=== PATIENT | female | born 1995 | race Caucasian/White ===

== ENCOUNTER 2018-01-13 19:02 | Emergency (ER) | payer BC, SELFPAY ==
[2018-01-13] VITALS (11 sets, daily range): BP systolic 112–130; BP diastolic 63–86; PULSE 90–143; RESP 13–23; TEMP 37.7–39.5; O2SAT 94–98
--- NOTE | 2018-01-13 19:31 | DI.RAD_ITS ---
SYMPTOM/DIAGNOSIS: COUGH, FEVER PA AND LATERAL CHEST: 01/13 The heart is normal in size. The lungs are clear. The mediastinal structures and pleura appear intact. CONCLUSION: Normal chest.
[2018-01-13] MEDS: Acetaminophen 500 MG TAB 1000 MG PO (19:34)
[2018-01-13] MEDS: Ibuprofen 800 MG TAB (19:35)
[2018-01-13] MEDS: Normal Saline 1,000 ML 1000 ML IV ×2 (19:45→20:55)
[2018-01-13 19:51] LABS: Abs Immature Grans 0.02 k/cumm (0.0-0.09); Absolute Basophil Count 0.02 k/cumm (0.0-0.2); Absolute Lymphocyte Count 1.06 k/cumm (1.2-3.4); Absolute Monocyte Count 0.71 k/cumm (0.11-0.7); Basophils % 0.4; HGB 11.1 g/dL (12.0-15.5); Immature Grans % 0.4; Mean Corp. HGB Concentration 31.7 g/dL (32.0-36.0); Mean Corpuscular Hemoglobin 18.5 pg (27.0-33.0); Mean Corpuscular Volume 58.3 fL (80-95); Monocytes % 13.4; Neutrophils % 65.8; RBC Distribution Width 17.8 % (11.7-14.6); White Blood Cell Count 5.31 k/cumm (4.4-10.8)
[2018-01-13 19:57] LABS: Bilirubin Negative (Negative); Blood Negative (Negative); Clarity Clear; Glucose Negative (Negative); Ketones Negative (Negative); Leukocyte Esterase Negative (Negative); Nitrite Negative (Negative); pH 8.5 (5-8)
[2018-01-13 20:04] LABS: ALT 28 U/L (12-78); AST 23 U/L (15-37); Alkaline Phosphatase 111 U/L (46-116); Anion Gap 9.8 mmol/L (3-11); BUN 6 mg/dL (7-18); Bilirubin, Total 1.2 mg/dL (0.2-1.0); CO2 27.2 mmol/L (21.0-32.0); CREATININE 0.81 mg/dL (0.55-1.02); Calcium 9.2 mg/dL (8.5-10.1); Chloride 97 mmol/L (98-107); Glucose 108 mg/dL (70-100); Magnesium 1.5 mg/dL (1.8-2.4); Potassium 3.7 mmol/L (3.5-5.1); Sodium 134 mmol/L (136-145); Total Protein 8.1 g/dL (6.4-8.2)
[2018-01-13 20:08] LABS: Diff Comment RBC Morph Reviewed
[2018-01-13 20:09] LABS: Anisocytosis 1+; Basophilic Stippling Present; Hypochromasia 2+; Microcytosis 2+; Ovalocytes 2+; Platelet Count 161 x1000/uL (130-400); Polychromasia Present
[2018-01-13] MEDS: MAGNESIUM SULFATE 1 GM/100 ML BAG IVPB (20:48)
--- NOTE | 2018-01-13 21:16 | W.ED.GENAD ---
Discharge Plan Disposition Patient Disposition: HOME Condition: Improving Discharge Details Chief Complaint: Fever Clinical Impression: Viral syndrome Primary Care Provider: [facility] ED Provider: Deyanira Dennis Home Meds and New Rx's Prescriptions: New ibuprofen [IBU] 800 mg Tablet 600 mg .Route QID PRN PRNQty: 1 RF: 0 acetaminophen [Mapap Extra Strength] 500 mg Tablet 650 mg .Route QID PRN PRNQty: 1 RF: 0 Continue trazodone 100 MG tablet 100 - 150 mg PO .QHS RF: 0 lorazepam 0.5 MG tablet RF: 0 nadolol 20 mg Tablet 20 mg PO RF: 0 Discharge Instructions Instructions: Viral Syndrome (ED) Additional Instructions: Push fluids to stay well-hydrated drinking at least 6-8 glasses of water daily or more Use ibuprofen every 6 hours with food as directed, can alternate with acetaminophen every 6 hours for breakthrough fever or pain alternating the 2 every 3 hours. Use cool compress for comfort and fever management if needed. Referrals: Practice Provider [Provider Group] - 2 days (return sooner for new or worsening symptoms) Medical Decision Making Fever workup initiated patient received 2 L of IV fluid acetaminophen 1000 mg and ibuprofen 800 mg. Blood cultures pending labs unremarkable. Repeat evaluation shows normalized heart rate stable blood pressure. Patient reports her headache and neck pain have subsided. Patient is safe for discharged home with symptom management instructions Imaging Data Radiologic Study: Imaging: X-Ray (Chest x-ray no acute findings) Lab Data Lab results reviewed: Yes I reviewed the patient's lab results. Patient presents to the emergency department for evaluation of fever headache and cough, states her symptoms started last night around 6 PM. She last took acetaminophen this morning. Denies abdominal pain nausea or vomiting she has no rashes or lesions she denies any urinary symptoms. She has no history of pneumonia she has no recent sick contacts with similar symptoms. She denies shortness of breath or wheeze. Is reporting headache and stiff neck but when completing her history she is freely nodding yes and no to questions with her head with no meningeal signs HPI General Date/Time Provider Initiated Documentation: 01/13/18 19:11. Related Data Home Medications Medication Instructions Recorded Confirmed lorazepam 08/04/15 trazodone 100 - 150 mg PO .QHS 08/04/15 01/13/18 acetaminophen [Mapap Extra 650 mg .ROUTE QID PRN PRN #1 tab 01/13/18 Strength] ibuprofen [IBU] 600 mg .ROUTE QID PRN PRN #1 tab 01/13/18 nadolol 20 mg PO 01/13/18 Previous Rx's Medication Instructions Recorded acetaminophen [Mapap Extra 650 mg .ROUTE QID PRN PRN #1 tab 01/13/18 Strength] ibuprofen [IBU] 600 mg .ROUTE QID PRN PRN #1 tab 01/13/18 Allergies Allergy/AdvReac Type Severity Reaction Status Date / Time amoxicillin Allergy Severe Unverified 01/13/18 20:49 General Stated Complaint: Fever PATI: 3 Review of Systems Constitutional Reports as per HPI, Reports body ache(s), Reports fatigue, Reports fever(s), Reports headache(s), Reports malaise and Reports poor appetite Eyes Denies loss of vision ENT Denies vertigo, Denies dizziness, Reports headache(s) and Reports neck pain Cardiovascular Denies chest pain, Denies syncope and Denies dyspnea Respiratory Reports chest congestion, Reports cough and Denies dyspnea Gastrointestinal Denies abdominal pain, Denies nausea and Denies vomiting Genitourinary Denies hematuria, Denies urinary frequency, Denies difficulty voiding, Denies flank pain, Denies urinary incontinence and Denies vaginal discharge Musculoskeletal Denies abnormal gait, Denies limited range of motion and Reports neck pain Neurologic Denies abnormal speech, Denies abnormal gait, Denies confusion, Denies vertigo, Denies dizziness, Denies syncope, Reports headache(s), Denies loss of vision and Denies other visual disturbances Psychiatric Denies confusion Endocrine Reports fatigue PFSH Social History Smoking/Tobacco Use Status: Never Exam Const General: cooperative, healthy appearing (She is well perfused and nontoxic-appearing), comfortable, no acute distress, well developed and does not appear intoxicated Orientation: alert, awake and oriented x3 HENMT Head: normal to inspection, normocephalic and atraumatic Mouth: moist mucous membranes Throat: posterior oropharynx normal Neck Neck: full ROM, lymphadenopathy noted and no meningeal signs Resp Effort & Inspection: normal respiratory effort, able to speak in complete sentences, cough, not labored and no respiratory distress Auscultation: clear to auscultation bilaterally, no rhonchi and no wheezes Cardio Rate: regular rate and tachycardic GI Inspection: normal to inspection Palpation: soft Skin General skin exam: no rashes or lesions noted Neuro General: alert, awake and oriented x3 Cranial Nerves: CN's II-XI intact bilaterally Cognition: normal cognition Speech: speech normal Gait: normal gait Motor: muscle tone normal throughout and strength 5/5 throughout Extrem General: normal to inspection, full ROM and normal capillary refill Course Vital Signs Temperature 39.5 C H 01/13/18 19:07 Pulse 143 H 01/13/18 19:07 Respiratory Rate 18 01/13/18 19:07 Blood Pressure 130/86 01/13/18 19:07 Pulse Oximetry 94 L 01/13/18 19:07 Temperature 38.6 C H 01/13/18 20:31 Temperature Source Oral 01/13/18 20:31 Pulse 90 01/13/18 21:01 Pulse 97 H 01/13/18 21:01 Respiratory Rate 15 01/13/18 21:01 Respiratory Effort 01/13/18 19:26 Blood Pressure 112/66 01/13/18 21:01 Blood Pressure Mean 76 01/13/18 21:01 Pulse Oximetry 98 01/13/18 21:01 Oxygen Delivery Method Room Air 01/13/18 19:07 Oxygen Flow Rate 0 01/13/18 19:07 Pain Level 7 01/13/18 19:07 Lab/Test Results Lab/Test Results: 01/13/18 21:13 Nasopharynx Influenza Types A,B Antigen - Pending 01/13/18 19:57 Blood Blood Culture - Pending 01/13/18 19:52 Blood Blood Culture - Pending 01/13/18 19:42 Sputum Sputum Culture - Pending 01/13/18 19:42 Sputum Gram Stain - Pending Laboratory Tests Range/Units 01/13/18 01/13/18 01/13/18 19:47 19:52 19:52 WBC (4.4-10.8) k/cumm 5.31 RBC (4.00-5.20) m/cumm 6.00 H Hgb (12.0-15.5) g/dL 11.1 L Hct (36.0-46.0) % 35.0 L MCV (80-95) fL 58.3 L MCH (27.0-33.0) pg 18.5 L MCHC (32.0-36.0) g/dL 31.7 L RDW (11.7-14.6) % 17.8 H Plt Count (130-400) x1000/uL 161 MPV Not Applicable Immature Gran % 0.4 Neutrophils % 65.8 Lymphocytes % 20.0 Monocytes % 13.4 Eosinophils % 0.0 Basophils % 0.4 Absolute Neutrophils (1.2-6.7) k/cumm 3.50 Absolute Lymphocytes (1.2-3.4) k/cumm 1.06 L Absolute Monocytes (0.11-0.7) k/cumm 0.71 H Absolute Eosinophils (0.0-0.7) k/cumm 0.00 Absolute Basophils (0.0-0.2) k/cumm 0.02 Differential Comment Rbc morph reviewed RBC Morphology See below Polychromasia Present Hypochromasia 2+ Basophilic Stippling Present Anisocytosis 1+ Microcytosis 2+ Ovalocytes 2+ Sodium (136-145) mmol/L 134 L Potassium (3.5-5.1) mmol/L 3.7 Chloride (98-107) mmol/L 97 L Carbon Dioxide (21.0-32.0) mmol/L 27.2 Anion Gap (3-11) mmol/L 9.8 BUN (7-18) mg/dL 6 L Creatinine (0.55-1.02) mg/dL 0.81 Estimated GFR/1.73 m2 (mL/min/1.73m2) >= 60.00 Glucose (70-100) mg/dL 108 H Calcium (8.5-10.1) mg/dL 9.2 Magnesium (1.8-2.4) mg/dL 1.5 L Total Bilirubin (0.2-1.0) mg/dL 1.2 H AST (15-37) U/L 23 ALT (12-78) U/L 28 Alkaline Phosphatase (46-116) U/L 111 Total Protein (6.4-8.2) g/dL 8.1 Albumin (3.4-5.0) g/dL 4.0 Urine Color (Yellow) Yellow Urine Clarity Clear Urine pH (5-8) 8.5 H Ur Specific [place] (1.005-1.025) 1.020 Urine Protein (Negative) mg/dL Negative Urine Ketones (Negative) mg/dL Negative Urine Blood (Negative) Negative Urine Nitrite (Negative) Negative Urine Bilirubin (Negative) Negative Urine Urobilinogen (Up TO 0.2) EU/dL 2.0 H Ur Leukocyte Esterase (Negative) Negative Urine Glucose (Negative) mg/dL Negative
--- NOTE | 2018-01-13 22:04 | DI.VRAD_ITS ---
EXAM: XR Chest, 2 Views EXAM DATE/TIME: 01/13/2018 8:10 PM CLINICAL HISTORY: 22 years old, female; Signs and symptoms; Cough and fever; Patient HX: PT stated cough has gotten worse in the last 24hrs TECHNIQUE: XR of the chest, 2 views. COMPARISON: No relevant prior studies available. FINDINGS: Lungs: Unremarkable. No consolidation. Pleural space: Unremarkable. No pleural effusion. No pneumothorax. Heart/Mediastinum: Unremarkable. No cardiomegaly. Bones/joints: Unremarkable for patient's age. IMPRESSION: No acute findings. Dictated and Authenticated by: Wong Manning MD. Ordering:STU OSORIO MD
== END 2018-01-13 22:00 | disposition home or self-care (01) ==
PROVIDERS: Emergency Provider Nurse Practitioner Acute Care
DX: R50.9 Fever, unspecified (principal); R51 Headache; R05 Cough; B34.9 Viral infection, unspecified
CPT/HCPCS: 36415; 80053; 87040; 87449; 96361; 96365; 99284; 71046; 81003; 83735; 85025; 87070; 87205; J3475